=== PATIENT | male | born 1970 ===

== ENCOUNTER 2020-12-30 01:46 | Emergency (ER) | payer OTHER ==
[2020-12-30 02:44] LABS: #Basophils 0.1 thou/uL (0.0-0.2); #Eosinphils 0.5 thou/uL (0.0-0.7); #Lymphocytes 1.9 thou/uL (1.20-3.40); #Monocytes 0.6 thou/uL (0.11-0.59); #Neutrophils 6.3 thou/uL (1.40-6.50); %Basophils 1.3 % (0.0-1.0); %Lymphocytes 20.3 % (21.0-51.0); %Neutrophils 67.4 % (42.0-75.0); Hemoglobin 15.6 g/dL (14.0-18.0); Mean Corpuscular HGB CONC 34.1 g/dL (32.0-36.0); Mean Corpuscular Volume 85.1 fL (78.0-98.0); Mean Platelet Volume 6.1 fL (7.4-10.4); Platelet Count 282 thou/uL (130-400); RBC Distribution Width 11.1 % (11.5-14.5); Red Blood Cell (RBC) Count 5.38 mill/uL (4.70-6.10); White Blood Cell (WBC) Count 9.4 thou/uL (4.8-10.8)
[2020-12-30] MEDS ORDERED: Carvedilol 25 MG TAB ONE (02:44)
[2020-12-30] MEDS ORDERED: Lisinopril 20 MG TAB ONE (02:44)
[2020-12-30] MEDS ORDERED: Furosemide 40 MG TAB ONE (02:44)
[2020-12-30] MEDS ORDERED: Potassium Chloride 20 MEQ TAB ONE (02:44)
[2020-12-30 03:03] LABS: Chloride 98 mmol/L (98-107); Potassium 3.3 mmol/L (3.5-5.1); Sodium 140 mmol/L (136-145)
[2020-12-30 03:04] LABS: ALT (SGPT) 19 U/L (8-55); AST (SGOT) 16 U/L (5-34); Albumin 4.2 g/dL (3.5-5.0); Alkaline Phosphatase 99 U/L (40-110); Anion Gap 13 mmol/L (10-20); BUN (Urea Nitrogen) 15 mg/dL (8.9-20.6); Bilirubin, Total 1.2 mg/dL (0.2-1.2); Calc. Creatinine Clearance 0 mL/min (70-130); Calcium 8.8 mg/dL (7.8-10.44); Carbon Dioxide 32 mmol/L (22-29); Glucose 109 mg/dL (70-105); Protein, Total 7.2 g/dL (6.0-8.3)
== END 2020-12-30 03:33 ==
LOC: NAV ERS 01:46
DX: I10 Essential (primary) hypertension (principal); E87.6 Hypokalemia; J45.909 Unspecified asthma, uncomplicated; Z87.891 Personal history of nicotine dependence; Z79.899 Other long term (current) drug therapy
CPT/HCPCS: 80053; 83735; 83880; 84484; 85025; 93005; 94760